=== PATIENT | male | born 1990 ===

== ENCOUNTER 2017-11-07 15:18 | Emergency (ER) | payer OTHER ==
[2017-11-07 15:27] VITALS: TEMP 99
--- NOTE | 2017-11-07 15:34 | C.PDOC ---
History Of Present Illness 27 year old male presents to the ER with a complaint of a boil for the past 3-4 days to sacral area. Patient states it has been growing and the pain has been worsening which prompted visit. Patient has a history of similar in the past and states it drained and resolved on its own. Denies any current discharge or bleeding. Time Seen by Provider: 11/07/17 15:30 Chief Complaint (Nursing): Abnormal Skin Integrity History Per: Patient History/Exam Limitations: no limitations Onset/Duration Of Symptoms: Days Current Symptoms Are (Timing): Still Present Location Of Injury: Posterior: Buttock Quality Of Symptoms: Painful Recent travel outside of the [place]: No Past Medical History Reviewed: Historical Data, Nursing Documentation, Vital Signs Vital Signs: Last Vital Signs Temp 99 F 11/07/17 15:24 Pulse 99 H 11/07/17 15:24 Resp 19 11/07/17 15:24 BP 116/76 11/07/17 15:24 Pulse Ox 96 11/07/17 17:01 - Medical History PMH: No Chronic Diseases Surgical History: No Surg Hx Family History: States: Unknown Family Hx - Social History Hx Alcohol Use: No Hx Substance Use: No - Immunization History Hx Tetanus Toxoid Vaccination: No Hx Influenza Vaccination: No Hx Pneumococcal Vaccination: No Review Of Systems Constitutional: Negative for: Fever, Chills Gastrointestinal: Negative for: Vomiting, Abdominal Pain, Diarrhea, Constipation , Hematochezia, Hematemesis, Rectal Pain Genitourinary: Negative for: Dysuria Skin: Positive for: Other (Boil cleft) Physical Exam - Physical Exam Appears: Non-toxic Skin: Normal Color, Warm, Dry Head: Atraumatic, Normacephalic Eye(s): bilateral: Normal Inspection Neck: Normal ROM Chest: Symmetrical Gastrointestinal/Abdominal: Soft, No Tenderness Back: Other (2x3cm tender fluctuant mass at the cleft with mild induration to surrounding sacral area) Extremity: Bilateral: Atraumatic, Hips Non-Tender Neurological/Psych: Oriented x3, Normal Speech ED Course And Treatment O2 Sat by Pulse Oximetry: 96 (Room air) Pulse Ox Interpretation: Normal - Incision & Drainage Of Abscess Anesthesia: Lidocaine 2% Prep Used: Betadine Procedure: Incised W/Scalpel Blade#: (15), Drained Pus, Irrigated Cavity W/ Saline, Packed W/Gauze (1 inch iodoform), Cultures Obtained And Sent To Lab Medical Decision Making Medical Decision Making: Patient has pilonidal abscess. Case discussed with ER attending Dr Shin who also examined patient at bedside, she agreed the patient needs I&D but can also consult surgery if operable at this time. Contact residential interior designer Magali to discuss case and he states the area just needs I&D at this time and patient will have to follow up outpatient with surgeon. The patient gave verbal consent to I&D procedure to be performed at bedside. Patient was given Morphine IM and lidocaine locally for pain. Patient tolerated procedure well and dressing applied. See procedure note. I discussed the plan for discharge with antibiotics and pain medication and instruct patient to return in 2 days for packing removal. I also explained to the patient these abscesses can reoccur because of sinus tract and it is advised to follow up with surgeon outpatient for further evaluation and surgical removal of cyst. The patient expressed understanding and was given dose of Augmentin prior to discharge. Disposition Counseled Patient/Family Regarding: Diagnosis, Need For Followup, Rx Given - Disposition Referrals: Michel Chavez MD [Staff Provider] - Disposition: HOME/ ROUTINE Disposition Time: 16:53 Condition: STABLE Additional Instructions: Your wound was drained of pus and packing was placed in wound. You must return to the ED in 2 days for packing removal and wound check Take the antibiotic prescribed twice daily and take pain medicine as needed Return to the emergency department at any time if symptoms persist or worsen. As mentioned in the ED, these abscesses can reoccur because of sinus tract and it is advised to follow up with surgeon for further evaluation and surgical removal of cyst Prescriptions: Amoxicillin/Clavulanate [Augmentin 875 MG-125 MG] 1 tab PO BID #14 tab traMADol [Ultram] 50 mg PO Q8 #20 tab Instructions: Abscess Incision and Drainage (DC), Pilonidal Cyst (DC) Forms: [email or web address] (Telugu) - POA Present On Arrival: None - Clinical Impression Clinical Impression: Pilonidal abscess - PA / WAFFLE MACHINE OPERATOR / Resident Statement MD/DO has reviewed & agrees with the documentation as recorded. - Scribe Statement The provider has reviewed the documentation as recorded by the Scribe Cholo Cheung All medical record entries made by the Scribe were at my direction and personally dictated by me. I have reviewed the chart and agree that the record accurately reflects my personal performance of the history, physical exam, medical decision making, and the department course for this patient. I have also personally directed, reviewed, and agree with the discharge instructions and disposition.
[2017-11-07] MEDS ORDERED: Lidocaine 2% Inj (20ml) INFIL ONE (15:56)
[2017-11-07] MEDS ORDERED: Lidocaine 2% MPF (5 ml) Inj ONE (16:01)
[2017-11-07] MEDS ORDERED: Morphine 4 MG/ML VIAL ONE (16:15)
[2017-11-07] MEDS ORDERED: Amoxicillin-Clav 875-125 mg Tab PO STA (16:51)
[2017-11-07] MEDS ORDERED: Amoxicillin-Clav 875-125 mg Tab PO ONE (17:08)
[2017-11-07 17:20] VITALS: BP 121/78; PULSE 90; RESP 18
[2017-11-07 20:20] VITALS: O2SAT 96
== END 2017-11-07 17:20 | disposition home or self-care (01) ==
LOC: C.ER 15:18
DX: L05.01 Pilonidal cyst with abscess (principal)
CPT/HCPCS: 10080; 87070; 96372; 99283; J2270

== ENCOUNTER 2017-11-09 13:31 | Emergency (ER) | payer OTHER ==
[2017-11-09 14:23] VITALS: BP 119/71; PULSE 95; RESP 18; TEMP 98.6; O2SAT 98
--- NOTE | 2017-11-09 15:38 | C.PDOC ---
History Of Present Illness 27 year old male presents to the emergency department for wound check and packing change after I&D of pilonidal abscess was drained 2 days ago. Time Seen by Provider: 11/09/17 14:33 Chief Complaint (Nursing): Wound Check History Per: Patient History/Exam Limitations: no limitations Past Medical History Reviewed: Historical Data, Nursing Documentation, Vital Signs Vital Signs: Last Vital Signs Temp 98.6 F 11/09/17 14:22 Pulse 95 H 11/09/17 14:22 Resp 18 11/09/17 14:22 BP 119/71 11/09/17 14:22 Pulse Ox 98 11/09/17 17:55 Family History: States: No Known Family Hx - Social History Hx Alcohol Use: No Hx Substance Use: No - Immunization History Hx Tetanus Toxoid Vaccination: No Hx Influenza Vaccination: No Hx Pneumococcal Vaccination: No Review Of Systems Except As Marked, All Systems Reviewed And Found Negative. Constitutional: Negative for: Fever Gastrointestinal: Negative for: Nausea, Vomiting Musculoskeletal: Negative for: Back Pain, Leg Pain Physical Exam - Physical Exam Appears: Non-toxic, No Acute Distress Skin: Warm, Dry, Other (No swelling or pus from wound) Head: Atraumatic, Normacephalic Eye(s): bilateral: Normal Inspection Neurological/Psych: Oriented x3, Normal Speech ED Course And Treatment O2 Sat by Pulse Oximetry: 98 (RA) Pulse Ox Interpretation: Normal Progress Note: Packaging was removed and wound was irrigated with saline. No purulent drainage. Patient feels better, take antibiotics regularly, and is stable to be discharge home. He was instructed to continue with his medications and to follow up with surgeon as instructed from the first visit. Disposition - Disposition Disposition: HOME/ ROUTINE Disposition Time: 15:37 Condition: STABLE Additional Instructions: Follow up and take all medications as previously instructed. Return to ED if feel worse. Forms: [employer] (Syriac) - Clinical Impression Clinical Impression: Wound check, abscess - PA / TELEGRAPHIC INSTRUMENT SUPERVISOR / Resident Statement MD/DO has reviewed & agrees with the documentation as recorded. - Scribe Statement The provider has reviewed the documentation as recorded by the Scribe Allyson Wright All medical record entries made by the Scribe were at my direction and personally dictated by me. I have reviewed the chart and agree that the record accurately reflects my personal performance of the history, physical exam, medical decision making, and the department course for this patient. I have also personally directed, reviewed, and agree with the discharge instructions and disposition.
== END 2017-11-09 15:48 | disposition home or self-care (01) ==
LOC: C.ER 13:31
DX: Z48.00 Encounter for change or removal of nonsurgical wound dressing (principal)